=== PATIENT | female | born 1995 | race Caucasian/White ===

== ENCOUNTER → 2021-10-23 12:00 | Outpatient (CLI) | payer BC, SELFPAY ==
[2021-10-23 13:56] LABS: HCG,Quantitative 4246 mIU/ml (0-5.42)
== END ==
PROVIDERS: Visit Provider Obstetrics & Gynecology
DX: Z32.00 Encounter for pregnancy test, result unknown (principal)
CPT/HCPCS: 36415; 84702

== ENCOUNTER → 2021-10-28 15:23 | Outpatient (CLI) | payer BC, SELFPAY ==
[2021-10-28 16:49] LABS: Basophils % 0.5 % (0.1-2.0); Eosinophils # 0.1 K/mm3 (0.0-0.4); Eosinophils % 0.6 % (0.1-12.0); Hemoglobin 12.9 g/dL (12.2-16.2); Lymphocytes % 25.6 % (10-50); Mean Corpuscular HGB Conc 31.5 g/dL (31.8-35.4); Mean Corpuscular Hemoglobin 27.9 pg (27.0-31.2); Mean Corpuscular Volume 88.4 fl (81-99); Mean Platelet Volume 9.7 fl (7.4-10.4); Monocytes # 0.4 K/mm3 (0.1-1.0); Monocytes % 4.5 % (1.7-9.3); Neutrophils # 5.5 K/mm3 (1.8-7.8); Neutrophils % 68.9 % (37.0-80.0); Platelet Count 266 K/mm3 (142-424); Red Blood Count 4.63 M/mm3 (4.20-5.40); Red Cell Distribution Width 13.7 % (11.5-17.5)
[2021-10-28 17:01] LABS: HCG,Quantitative 3064 mIU/ml (0-5.42)
== END ==
PROVIDERS: Visit Provider Obstetrics & Gynecology
DX: N93.9 Abnormal uterine and vaginal bleeding, unspecified (principal); Z34.90 Encounter for supervision of normal pregnancy, unspecified, unspecified trimester
CPT/HCPCS: 36415; 84702; 85025

== ENCOUNTER → 2021-11-03 14:05 | Outpatient (CLI) | payer BC, SELFPAY ==
--- NOTE | 2021-11-03 14:06 | US_ITS ---
FINAL REPORT CLINICAL HISTORY: threatened -- pt has been bleeding-- eval for retained produlcts FINDINGS: Transvaginal Ultrasound Technique: Transvaginal sonographic images of the pelvis were obtained. Findings: The uterus measures 7.3 x 3.6 x 2.9 cm. The endometrium is unremarkable. There is no mass or fluid within the endometrial canal. The right ovary measures 2.0 cm. The left ovary is heterogeneous measuring 4 cm of uncertain etiology. There is a small to moderate amount of free fluid. IMPRESSION: Heterogeneous 4 cm left ovary of uncertain etiology. Left ectopic cannot entirely be excluded. Consider follow-up. Reviewed, Interpreted and Dictated by King Calvillo III, MD Transcribed by Abdias De León Authenticated by King Calvillo III, MD on 11/03/2021 04:26:04 PM [facility]
[2021-11-03 16:33] LABS: HCG,Quantitative 1945 mIU/ml (0-5.42)
== END ==
PROVIDERS: Visit Provider Obstetrics & Gynecology
DX: O20.0 Threatened abortion (principal)
CPT/HCPCS: 36415; 76830; 84702